=== PATIENT | female | born 1980 | race American Indian/Alaskan Native ===

== ENCOUNTER 2018-12-20 12:49 | Emergency (ER) | payer SELFPAY ==
[2018-12-20 13:03] VITALS: BP 133/79
--- NOTE | 2018-12-20 13:05 | Emergency Department Report ---
Chief Complaint: Dental/Oral Stated Complaint: TOOTHACHE Time Seen by Provider: 12/20/18 13:00 - HPI History of Present Illness: This is a 38 y.o. F. that presents to the ER with upper right dental pain on since last night. Reports pain as 8/10 on pain scale. Patient reports a throbbing pain that is worse with eating. Denies drooling, fever, difficulty swallowing, facial swelling, chills, headache, nausea, vomiting, chest pain or SOB. - ROS Review of Systems: HEENT: dental pain on right upper side - Exam Vital Signs: Vital Signs 12/20/18 13:01 Temperature 98.3 F Pulse Rate 83 Respiratory 16 Rate Blood Pressure 133/79 [Right] O2 Sat by Pulse 100 Oximetry Physical Exam: GENERAL APPEARANCE: The patient is a 38-year-old well-developed, well-nourished female in no acute distress. HEENT: Oropharynx is clear. Dark brown dental caries center, #3 with gingival swelling and tenderness. Tympanic membranes are clear. NECK: Supple. Trachea is midline. No evidence of thyroid enlargement. No lymphadenopathy or tenderness. CHEST: Symmetric. Nontender to palpation. LUNGS: Breath sounds are equal and clear bilaterally. No wheezes, rhonchi, or rales. HEART: Regular rate and rhythm with normal S1 and S2. No murmurs, gallops, or rubs. EXTREMITIES: No cyanosis, clubbing, or edema. NEUROLOGIC: No focal sensory or motor deficits are noted. Gait is normal. Cranial nerves II through XII are intact. Deep tendon reflexes are intact. PSYCHIATRIC: The patient is awake, alert, and oriented x3. Recent and remote memory is intact. Appropriate mood and affect. SKIN: Warm, dry, and well perfused. Good turgor. No lesions, nodules or rashes are noted. No onychomycosis. MSE screening note: Focused history and physical exam performed. Due to findings the following was ordered: ED Medical Decision Making - Medical Decision Making This patient was seen by this provider. Vitals are stable and patient is in no acute distress. There is a dental caries at #3 with gingival swelling. Start analgesics and amoxicillin. Referral to emergency dental clinics for continued care. Patient discharged home stable. ED Disposition for MSE Clinical Impression: Pain due to dental caries Disposition: TO HOME OR SELFCARE Is pt being admited?: No Does the pt Need Aspirin: No Condition: Stable Instructions: Dental Caries (ED), Toothache (ED) Additional Instructions: Take pain medication every 6-8 hours as needed for pain. Follow up with Dentist from the referrals list below. Prescriptions: Naproxen [Naprosyn] 500 mg PO TID PRN #20 tablet PRN Reason: Pain, Moderate (4-6) Amoxicillin [Trimox CAP] 500 mg PO BID #14 capsule traMADol [Ultram 50 MG tab] 50 mg PO Q6HR PRN #12 tablet PRN Reason: Pain Referrals: [facility] [Outside] - 3-5 Days [facility] [Outside] - 3-5 Days [facility] [Outside] - 3-5 Days Time of Disposition: 13:20
== END 2018-12-20 13:31 | disposition home or self-care (01) ==
LOC: ED 12:49
DX: K02.9 Dental caries, unspecified (principal); Z91.013 Allergy to seafood; Z88.2 Allergy status to sulfonamides; Z91.048 Other nonmedicinal substance allergy status
CPT/HCPCS: 99282

== ENCOUNTER 2020-10-12 21:01 | Emergency (ER) | payer SELFPAY ==
[2020-10-12 21:58] VITALS: BP 149/96
[2020-10-12 23:29] LABS: Basophils % (Auto) 0.6 % (0.0-1.8); Eosinophils # (Auto) 0.1 K/mm3 (0.0-0.4); Eosinophils % (Auto) 1.1 % (0.0-4.3); Hematocrit 36.2 % (30.3-42.9); Lymphocytes # (Auto) 1.9 K/mm3 (1.2-5.4); Lymphocytes % (Auto) 24.5 % (13.4-35.0); Mean Corpuscular HGB Conc 33 % (30-34); Mean Corpuscular Volume 80 fl (79-97); Monocytes # (Auto) 0.6 K/mm3 (0.0-0.8); Platelet Count 212 K/mm3 (140-440); Red Blood Count 4.55 M/mm3 (3.65-5.03); Red Cell Distribution Width 14.2 % (13.2-15.2)
[2020-10-12 23:53] LABS: Alanine Aminotransferase 27 units/L (7-56); Blood Urea Nitrogen 11 mg/dL (7-17); Calcium 9.4 mg/dL (8.4-10.2); Hemolysis Index 0
[2020-10-12 23:58] LABS: BUN/Creatinine Ratio 16
--- NOTE | 2020-10-13 00:51 | Emergency Department Report ---
ED General Adult HPI - General Chief complaint: Medical Clearance Stated complaint: EXCESSIVE THURST,HEADACHE, EXCESSIVE URINATION Source: patient Mode of arrival: Ambulatory Limitations: No Limitations - History of Present Illness Initial comments: Patient is a 40-year-old -[place] Citizen female with no past medical history presents to the ED with complaint of acute onset persistent polyuria, polydipsia, excessive thirst, urinary urgency and frequency for the last 3 months. Patient states that the symptoms have been persistent although she has also been responding by drinking a lot of water to quench her thirst. Patient states that diabetes runs in her family affecting both her parents and some of her siblings. Patient denies abdominal pain, nausea, vomiting, dizziness, dysuria, vaginal bleeding, vaginal discharge, syncope, seizures, chest pain or shortness of breath, headache or back pain. MD Complaint: Polyuria; polydipsia; urinary frequency and urgency -: Gradual, month(s) (3) Location: abdomen Radiation: non-radiation Severity scale (0 -10): 0 Quality: dull Consistency: intermittent Improves with: none Worsens with: none Associated Symptoms: denies other symptoms. denies: confusion, chest pain, cough, diaphoresis, fever/chills, headaches, malaise, rash, seizure, shortness of breath, syncope, weakness, other Treatments Prior to Arrival: none - Related Data Previous Rx's Medication Instructions Recorded Last Taken Type Amoxicillin [Trimox CAP] 500 mg PO BID #14 capsule 12/20/18 Unknown Rx Naproxen [Naprosyn] 500 mg PO TID PRN #20 tablet 12/20/18 Unknown Rx traMADoL [Ultram 50 MG tab] 50 mg PO Q6HR PRN #12 tablet 12/20/18 Unknown Rx Allergies Allergy/AdvReac Type Severity Reaction Status Date / Time pollen extracts Allergy Itching Verified 12/20/18 13:01 shellfish derived Allergy Unknown Verified 12/20/18 13:01 sulfamethoxazole Allergy Rash Verified 12/20/18 13:01 [From Bactrim] trimethoprim [From Bactrim] Allergy Rash Verified 12/20/18 13:01 ED Review of Systems ROS: Stated complaint: EXCESSIVE THURST,HEADACHE, EXCESSIVE URINATION Other details as noted in HPI Constitutional: malaise. denies: chills, fever, weakness Eyes: denies: eye pain, eye discharge, vision change ENT: denies: ear pain, throat pain Respiratory: denies: cough, shortness of breath, wheezing Cardiovascular: denies: chest pain, palpitations, edema, syncope, paroxysmal nocturnal dyspnea Endocrine: no symptoms reported, increased thirst, increased urine. denies: flushing, intolerance to cold, intolerance to heat, increased hunger, unexplained weight gain, unexplained weight loss Gastrointestinal: denies: abdominal pain, nausea, vomiting, diarrhea Genitourinary: denies: urgency, dysuria, discharge Musculoskeletal: denies: back pain, joint swelling, arthralgia Skin: denies: rash, lesions Neurological: denies: headache, weakness, paresthesias Psychiatric: denies: anxiety, depression Hematological/Lymphatic: denies: easy bleeding, easy bruising ED Past Medical Hx - Past Medical History Previous Medical History?: No - Surgical History Additional Surgical History: fibroid 10/2018, hysterectomy - Social History Smoking Status: Never Smoker Substance Use Type: None - Medications Home Medications: Home Medications Medication Instructions Recorded Confirmed Last Taken Type Amoxicillin [Trimox CAP] 500 mg PO BID #14 capsule 12/20/18 Unknown Rx Naproxen [Naprosyn] 500 mg PO TID PRN #20 tablet 12/20/18 Unknown Rx traMADoL [Ultram 50 MG tab] 50 mg PO Q6HR PRN #12 tablet 12/20/18 Unknown Rx ED Physical Exam - General Limitations: No Limitations General appearance: alert, in no apparent distress - Head Head exam: Present: atraumatic, normocephalic, normal inspection - Eye Eye exam: Present: normal appearance, PERRL, EOMI Pupils: Present: normal accommodation - ENT ENT exam: Present: normal exam, normal orophraynx, mucous membranes moist, TM's normal bilaterally, normal external ear exam - Neck Neck exam: Present: normal inspection, full ROM - Respiratory Respiratory exam: Present: normal lung sounds bilaterally. Absent: respiratory distress, wheezes, rales, rhonchi, stridor, chest wall tenderness, accessory muscle use, decreased breath sounds, prolonged expiratory - Cardiovascular Cardiovascular Exam: Present: regular rate, normal rhythm, normal heart sounds. Absent: systolic murmur, diastolic murmur, rubs, gallop - GI/Abdominal GI/Abdominal exam: Present: soft, normal bowel sounds. Absent: tenderness, guarding, rebound, hyperactive bowel sounds, hypoactive bowel sounds, mass - Extremities Exam Extremities exam: Present: normal inspection, full ROM, normal capillary refill - Back Exam Back exam: Present: normal inspection, full ROM. Absent: tenderness, CVA tenderness (R), CVA tenderness (L), muscle spasm, paraspinal tenderness, vertebral tenderness - Neurological Exam Neurological exam: Present: alert, oriented X3, CN II-XII intact, normal gait, reflexes normal - Psychiatric Psychiatric exam: Present: normal affect, normal mood, anxious - Skin Skin exam: Present: warm, dry, intact, normal color. Absent: rash ED Course Vital Signs 10/12/20 10/13/20 21:16 03:00 Temperature 98.6 F Pulse Rate 84 70 Respiratory 18 16 Rate Blood Pressure 149/96 O2 Sat by Pulse 100 99 Oximetry ED Medical Decision Making - Lab Data Result diagrams: 10/12/20 23:10 10/12/20 23:10 - Medical Decision Making This is a 40-year-old -[place] Citizen female with no past medical history presents to the ED with complaint of acute onset persistent polyuria, polydipsia, excessive thirst, urinary urgency and frequency for the last 3 months. Patient states that the symptoms have been persistent although she has also been responding by drinking a lot of water to quench her thirst. Patient states that diabetes runs in her family affecting both her parents and some of her siblings. In the ED, patient is alert and oriented x3 and is not in any distress with normal vital signs. Lab test results were reviewed and are all nonactionable. Patient was therefore discharged home and advised to follow-up with her primary care physician or [facility] physician in 5 to 7 days for reevaluation. Patient is advised return to the ED immediately if symptoms get worse. - Differential Diagnosis Diabetes mellitus; diabetes insipidus; UTI; Critical care attestation.: If time is entered above; I have spent that time in minutes in the direct care of this critically ill patient, excluding procedure time. ED Disposition Clinical Impression: Frequency of urination and polyuria Disposition: TO HOME OR SELFCARE Is pt being admited?: No Does the pt Need Aspirin: No Condition: Stable Instructions: Urodynamic Testing, [id number] Additional Instructions: All lab test results were reviewed and are all nonactionable. Therefore follow- up with your primary care physician and urologist Dr. Mg next 3 to 5 days for reevaluation. Return to the ED immediately if symptoms get worse. Referrals: [facility] [Provider Group] - 3-5 Days KIMBERLI MG MD [Staff Physician] - 3-5 Days Time of Disposition: 00:58 Print Language: NEPALESE
[2020-10-13 02:38] LABS: Bilirubin,Urine NEG (Negative); Blood,Urine NEG (Negative); Color,Urine Yellow (Yellow); Mucus,Urine FEW /HPF; Protein,Urine <15 mg/dL mg/dL (Negative); RBC,Urine < 1.0 /HPF (0.0-6.0); Urobilinogen,Urine < 2.0 mg/dL (<2.0)
== END 2020-10-13 03:00 | disposition home or self-care (01) ==
LOC: ED 21:01
DX: R35.0 Frequency of micturition (principal); R35.8 Other polyuria; Z90.710 Acquired absence of both cervix and uterus; Z88.8 Allergy status to other drugs, medicaments and biological substances; Z88.2 Allergy status to sulfonamides; Z91.013 Allergy to seafood; Z79.899 Other long term (current) drug therapy
CPT/HCPCS: 36415; 80053; 81001; 82962; 83036; 84443; 84481; 84703; 85025; 99283

== ENCOUNTER 2022-02-05 20:18 | Emergency (ER) | payer SELFPAY | END 2022-02-06 15:42 | disposition left against medical advice (07) | LOC: ED 20:18 | DX: S99.922A Unspecified injury of left foot, initial encounter (principal); Z53.21 Procedure and treatment not carried out due to patient leaving prior to being seen by health care provider; X58.XXXA Exposure to other specified factors, initial encounter; Y93.89 Activity, other specified; Y92.89 Other specified places as the place of occurrence of the external cause; Y99.8 Other external cause status ==